=== PATIENT | male | born 1955 | race Two or more races ===

== ENCOUNTER 2024-02-08 20:15 | Emergency (ER) | payer OTHER ==
[~2024-02-08] VITALS: Ht 177.8 cm; Wt 89.0 kg
[2024-02-08 22:43] VITALS: BP 139/84; PULSE 63; RESP 16; TEMP 97.8; O2SAT 100
[2024-02-08] MEDS: HYDROcodone-ACET 10/325MG TAB PO ONE (22:54)
[2024-02-08] MEDS ORDERED: METH4PAK PO (22:55)
== END 2024-02-08 23:07 | disposition home or self-care (01) ==
LOC: ER 20:15
DX: T78.49XA Other allergy, initial encounter (principal); Z79.899 Other long term (current) drug therapy; X58.XXXA Exposure to other specified factors, initial encounter
CPT/HCPCS: 82962